=== PATIENT | male | born 1975 | race Caucasian/White ===

== ENCOUNTER → 2016-10-24 | Outpatient (CLI) | payer OTHER | LOC: C.LAB 01:25 | DX: Z02.83 Encounter for blood-alcohol and blood-drug test (principal) ==

== ENCOUNTER 2021-11-03 01:36 | Observation (INO) ==
[2021-11-03] MEDS ORDERED: MoRPHine SULFATE 4 MG/ML 1 ML CARP\\VIAL IV STA ×2 (01:46→03:13)
[2021-11-03] MEDS ORDERED: SODIUM CHLORIDE 0.9% 1000ML 1,000 ML IV STA (01:46)
[2021-11-03] MEDS ORDERED: ONDANSETRON INJ 2 MG/ML 2 ML VIAL IV STA ×2 (01:46→03:59)
--- NOTE | 2021-11-03 01:50 | Emergency Department Note ---
History of Present Illness General Chief complaint: Flank Pain Stated complaint: SHARP PULSATING PAIN IN RIGHT SIDE Time Seen by Provider: 11/03/21 01:41 History of Present Illness This 46-year-old presents to the ER complaining of right upper quadrant flank pain today Location: Right upper quadrant Quality: Painful Severity: Moderate Duration: Today Timing: Today Context: Patient was concerned and came in Modifying factors: better with rest; worse with palpation Patient denies chest pain, dyspnea, vomiting, diarrhea, urinary symptoms. No prior abdominal surgeries. Home Medications Medication Instructions Recorded Confirmed Type NONE #0 11/18/10 History Allergies Allergy/AdvReac Type Severity Reaction Status Date / Time Penicillins Allergy Mild Unknown Verified 11/03/21 04:00 Past Med/Surg History Medical History No acute medical problems Surgical History No pertinent past surgical history Social History Smoking Status: Never smoker Feels Safe at Home: Yes Review of Systems A total of 10 systems reviewed and were otherwise negative Physical Exam Vital Signs Vital Signs - 24 hr 11/03/21 01:38 11/03/21 03:20 11/03/21 03:33 Temperature 36.2 C L Temperature Source Temporal Artery Scan Pulse Rate 55 L 56 L Pulse Rate [Finger] 54 L Respiratory Rate 18 18 18 Respiratory Effort / Characteristics Non-Labored Non-Labored Spontaneous Respiratory Depth Normal Normal Blood Pressure 138/85 Blood Pressure [Right Arm] 154/97 H Blood Pressure Mean 102 Blood Pressure Mean [Right Arm] 116 Blood Pressure Position Sitting Blood Pressure Position [Right Arm] Sitting Pulse Oximetry 97 100 99 Oxygen Delivery Method Room Air Room Air Room Air Sepsis Recent Fever Within 48 Hours No Sepsis New/Unexplained Change in Mental Status N/A Sepsis Action Taken by Nursing No Action Required 11/03/21 05:16 Temperature Temperature Source Pulse Rate Pulse Rate [Finger] 56 L Respiratory Rate 17 Respiratory Effort / Characteristics Non-Labored Spontaneous Respiratory Depth Normal Blood Pressure Blood Pressure [Right Arm] 143/81 H Blood Pressure Mean Blood Pressure Mean [Right Arm] 101 Blood Pressure Position Blood Pressure Position [Right Arm] Lying Pulse Oximetry 96 Oxygen Delivery Method Room Air Sepsis Recent Fever Within 48 Hours Sepsis New/Unexplained Change in Mental Status Sepsis Action Taken by Nursing VITALS: Vitals are noted on the nurse's note and reviewed by myself. Vital signs stable. GENERAL: Pleasant gentleman, in no acute distress, nondiaphoretic, well- developed well-nourished. SKIN: The skin was without rashes, erythema, edema, or bruising. There is no tenting of the skin. Capillary reflex less than 2 seconds. HEAD: Normocephalic atraumatic. EARS: External auditory canals clear, EYES: Pupils equal round and reactive to light and accommodation. Conjunctivae without injection, sclerae without icterus. Extraocular movements intact. NOSE: Patent, turbinates without inflammation or discharge MOUTH: Mucous membranes moist. Pharynx without erythema or exudate. Uvula midline. Airway patent. Tongue does not deviate. NECK: Supple without nuchal rigidity. No lymphadenopathy. No thyromegaly. Cervical spine is nontender. No JVD. HEART: Regular rate and rhythm LUNGS: Clear to auscultation bilaterally without wheezes, rales or rhonchi. No retractions or accessory muscle use. ABDOMEN: Positive bowel sounds x 4. Normal tympanic percussion. Soft, tender to palpation right upper quadrant, without masses or organomegaly. No guarding or rebound tenderness. No CVA tenderness MUSCULOSKELETAL: No muscle atrophy, erythema, or edema noted. NEURO: Patient was alert and oriented to person place and time. Normal sensation to light and sharp touch. No focal neurological deficits. Course Administered Medications Lactated Ringer's (Lr) 1,000 mls @ 125 mls/hr IV .Q8H [facility] Stop: 12/03/21 03:59 Last Admin: 11/03/21 05:13 Dose: 125 mls/hr Documented by: [id number] Discontinued Medications Sodium Chloride (Nss 1000ml) 1,000 mls @ 999 mls/hr IV .Q1H1M STA Stop: 11/03/21 02:46 Last Infusion: 11/03/21 05:11 Dose: 0 mls/hr Documented by: [id number] Admin: 11/03/21 02:30 Dose: 999 mls/hr Documented by: [id number] Cefoxitin Sodium (Mefoxin) 2,000 mg in 60 mls @ 100 mls/hr IV NOW STA Stop: 11/03/21 04:13 Last Infusion: 11/03/21 04:48 Dose: 0 mls/hr Documented by: [id number] Admin: 11/03/21 04:11 Dose: 100 mls/hr Documented by: [id number] Morphine Sulfate (Morphine Sulfate 4 Mg/Ml 1 Ml Carp\Vial) 4 mg IV NOW STA Stop: 11/03/21 01:47 Last Admin: 11/03/21 02:28 Dose: 4 mg Documented by: [id number] Morphine Sulfate (Morphine Sulfate 4 Mg/Ml 1 Ml Carp\Vial) 4 mg IV NOW STA Stop: 11/03/21 03:14 Last Admin: 11/03/21 03:19 Dose: 4 mg Documented by: [id number] Ondansetron HCl (Ondansetron Inj 2 Mg/Ml 2 Ml Vial) 4 mg IV NOW STA Stop: 11/03/21 01:47 Last Admin: 11/03/21 02:28 Dose: 4 mg Documented by: [id number] Ondansetron HCl (Ondansetron Inj 2 Mg/Ml 2 Ml Vial) 4 mg IV NOW STA Stop: 11/03/21 04:00 Last Admin: 11/03/21 04:04 Dose: 4 mg Documented by: [id number] Medical Decision Making Medical Records Attestation: I reviewed the patient's medical records. Home Medications Current Medication List: was personally reviewed by me Laboratory Data Attestation: I reviewed the patient's lab results. Result diagrams: 11/03/21 02:20 11/03/21 02:20 Lab Results 11/03/21 11/03/21 11/03/21 Range/Units 02:20 02:20 02:20 WBC 7.47 (4.8-10.8) K/uL RBC 4.83 (4.7-6.1) M/uL Hgb 14.3 (14.0-18.0) g/dL Hct 42.3 (42-52) % MCV 87.6 (80-100) fL MCH 29.6 (25-34) pg MCHC 33.8 (32-36) g/dL RDW Std Deviation 43.3 (36.4-46.3) fL RDW Coeff of Christophe 13.3 (11.5-14.5) % Plt Count 212 (130-400) K/uL MPV 9.8 (7.4-10.4) fL Immature Gran % (Auto) 0.1 % Neut % (Auto) 55.5 % Lymph % (Auto) 30.5 % Cocke % (Auto) 9.9 % Eos % (Auto) 3.7 % Baso % (Auto) 0.3 % Neut # (Auto) 4.14 (1.4-6.5) K/uL Lymph # (Auto) 2.28 (1.2-3.4) K/uL Cocke # (Auto) 0.74 H (0.11-0.59) K/uL Eos # (Auto) 0.28 (0-0.5) K/uL Baso # (Auto) 0.02 (0-0.2) K/uL Immature Gran # (Auto) 0.01 (0.00-0.02) K/uL Sodium 139 (136-145) mmol/L Potassium 3.6 (3.5-5.1) mmol/L Chloride 104 (98-107) mmol/L Carbon Dioxide 29 (21-32) mmol/L Anion Gap 6 (3-11) BUN 15 (6-23) mg/dl Creatinine 1.12 (0.6-1.4) mg/dl Est Cr Clr Drug Dosing 112.1 ml/min Est GFR ( Amer) 89.5 ml/min Est GFR (Non-Af Amer) 77.3 ml/min BUN/Creatinine Ratio 13.4 (10-20) Glucose 93 (70-99(Fasting)) mg/dl Calcium 8.9 (8.5-10.1) mg/dl Total Bilirubin 0.5 (0.2-1.0) mg/dl AST 17 (13-39) U/L ALT 24 (7-52) U/L Alkaline Phosphatase 70 (34-104) U/L Total Protein 6.7 (6.0-8.3) gm/dl Albumin 4.3 (3.4-5.0) gm/dl Globulin 2.4 L (2.5-4.0) gm/dl Albumin/Globulin Ratio 1.8 (0.9-2) Lipase 29 (11-82) U/L Urine Color Yellow Urine Appearance Clear (Clear) Urine pH 5.0 (4.5-7.5) Ur Specific [place] 1.018 (1.000-1.030) Urine Protein Negative (Negative) Urine Glucose (UA) Negative (Negative) Urine Ketones Trace H (Negative) Urine Blood Negative (Negative) Urine Nitrite Negative (Negative) Urine Bilirubin Negative (Negative) Urine Urobilinogen Negative (Negative) Ur Leukocyte Esterase Negative (Negative) SARS-CoV-2, RNA, NAAT (NEGATIVE) 11/03/21 Range/Units 03:28 WBC (4.8-10.8) K/uL RBC (4.7-6.1) M/uL Hgb (14.0-18.0) g/dL Hct (42-52) % MCV (80-100) fL MCH (25-34) pg MCHC (32-36) g/dL RDW Std Deviation (36.4-46.3) fL RDW Coeff of Christophe (11.5-14.5) % Plt Count (130-400) K/uL MPV (7.4-10.4) fL Immature Gran % (Auto) % Neut % (Auto) % Lymph % (Auto) % [place] % (Auto) % Eos % (Auto) % Baso % (Auto) % Neut # (Auto) (1.4-6.5) K/uL Lymph # (Auto) (1.2-3.4) K/uL [place] # (Auto) (0.11-0.59) K/uL Eos # (Auto) (0-0.5) K/uL Baso # (Auto) (0-0.2) K/uL Immature Gran # (Auto) (0.00-0.02) K/uL Sodium (136-145) mmol/L Potassium (3.5-5.1) mmol/L Chloride (98-107) mmol/L Carbon Dioxide (21-32) mmol/L Anion Gap (3-11) BUN (6-23) mg/dl Creatinine (0.6-1.4) mg/dl Est Cr Clr Drug Dosing ml/min Est GFR ( Amer) ml/min Est GFR (Non-Af Amer) ml/min BUN/Creatinine Ratio (10-20) Glucose (70-99(Fasting)) mg/dl Calcium (8.5-10.1) mg/dl Total Bilirubin (0.2-1.0) mg/dl AST (13-39) U/L ALT (7-52) U/L Alkaline Phosphatase (34-104) U/L Total Protein (6.0-8.3) gm/dl Albumin (3.4-5.0) gm/dl Globulin (2.5-4.0) gm/dl Albumin/Globulin Ratio (0.9-2) Lipase (11-82) U/L Urine Color Urine Appearance (Clear) Urine pH (4.5-7.5) Ur Specific [place] (1.000-1.030) Urine Protein (Negative) Urine Glucose (UA) (Negative) Urine Ketones (Negative) Urine Blood (Negative) Urine Nitrite (Negative) Urine Bilirubin (Negative) Urine Urobilinogen (Negative) Ur Leukocyte Esterase (Negative) SARS-CoV-2, RNA, NAAT NEGATIVE (NEGATIVE) Imaging Data Attestation: I personally reviewed and interpreted this imaging study as follows: MDM Narrative Prior records/ancillary studies reviewed. Triage Nursing notes reviewed. Additional history obtained from nursing. The patient's history was concerning for abdominal pain. Differential diagnosis: Etiologies such as appendicitis, diverticulitis, PUD, biliary pathology, UTI, pancreatitis, obstruction, mesenteric ischemia, aortic pathology, infections, inflammatory bowel disease, renal colic, as well as others were entertained. Physical examination findings: As above. ER treatment provided: An order was placed for continuous cardiac monitoring. The monitor shows a rate of 50-90 with a sinus rhythm. Zofran morphine IV fluids, Mefoxin On reassessment the patient felt better. Diagnostics interpreted by me: The labs revealed no worrisome leukocytosis. Negative urine Imaging studies: Stat rad was extremely delayed in reading. I did consult surgery prior to the official read. Ultrasound still has not read at time of admission. Surgery evaluated the patient and will take to the patient to the OR. Preliminary Findings Only See Final Report For Complete Findings US RUQ: Impression: Fatty liver 5 mm cyst seen in the left lobe of the liver. There are multiple gallstones. The gallbladder is mildly distended. Positive ultrasound Smith sign. These findings could be from acute cholecystitis and can be further assessed and cholescintigraphy. There is evidence of adenomyomatosis. CBD caliber measures 8.8 mm in diameter. Radiologist: Fred Otto MD the final report read was 3 hours later after it was uploaded to stat read for a read. Consultation: A consultation was placed with the surgical midlevel muriel. The case was discussed and diagnostics were reviewed. The patient was admitted to the surgical service for further evaluation and treatment. Exam and history seem consistent with biliary colic with concern for possible acute cholecystitis. Surgery was consulted. They will evaluate for admission. By the evaluation outlined above emergent etiologies such as appendicitis, diverticulitis, PUD, UTI, pancreatitis, obstruction, mesenteric ischemia, aortic pathology, inflammatory bowel disease, renal colic, as well as others were deemed relatively unlikely. The pt informed about the findings as listed above. All questions were answered and pleased with the treatment. The chart was completed utilizing [email or web address] Speech voice recognition software. Grammatical errors, random word insertions, pronoun errors, and incomplete sentences are an occassional consequence of this system due to software limitations, ambient noise, and hardware issues. Any formal questions or concerns about the content, text, or information contained within the body of this dictation should be directly addressed to the physician certified surgical assistant for clarification. Impression & Plan Biliary colic, Abdominal pain, acute Discharge Plan Visit Data Chief Complaint: Flank Pain Stated Complaint: SHARP PULSATING PAIN IN RIGHT SIDE ED Provider: Darline Espinoza ED Midlevel Provider: Darya Spaulding Discharge Problem: Biliary colic, Abdominal pain, acute Patient Disposition: Being Evaluated by Surgeon Condition: Good Forms Stand Alone Forms: [employer] Prescriptions Prescriptions: No Action NONE . Qty: 0 RF: 0 Referrals Referrals: [facility],[place] [Non-Staff] -
[2021-11-03 02:35] LABS: Basophils # (auto) 0.02 K/uL (0-0.2); Basophils % (auto) 0.3 %; Eosinophils # (auto) 0.28 K/uL (0-0.5); Eosinophils % (auto) 3.7 %; Hematocrit (blood only) 42.3 % (42-52); Hemoglobin 14.3 g/dL (14.0-18.0); Immature Granulocytes # (auto) 0.01 K/uL (0.00-0.02); Immature Granulocytes % (auto) 0.1 %; Lymphocytes # (auto) 2.28 K/uL (1.2-3.4); Lymphocytes % (auto) 30.5 %; Mean Corpuscular Hemoglobin 29.6 pg (25-34); Mean Corpuscular Hgb Conc 33.8 g/dL (32-36); Mean Corpuscular Volume 87.6 fL (80-100); Mean Platelet Volume 9.8 fL (7.4-10.4); Monocytes # (auto) 0.74 K/uL (0.11-0.59); Monocytes % (auto) 9.9 %; Neutrophils # (auto) 4.14 K/uL (1.4-6.5); Neutrophils % (auto) 55.5 %; Platelet Count 212 K/uL (130-400); RDW Coefficient of Variation 13.3 % (11.5-14.5); RDW Standard Deviation 43.3 fL (36.4-46.3); Red Blood Count 4.83 M/uL (4.7-6.1); White Blood Count 7.47 K/uL (4.8-10.8)
[2021-11-03 03:00] LABS: Albumin Globulin Ratio 1.8 (0.9-2); Albumin Level 4.3 gm/dl (3.4-5.0); BUN Creatinine Ratio 13.4 (10-20); Bilirubin,Total 0.5 mg/dl (0.2-1.0); Calcium 8.9 mg/dl (8.5-10.1); Creatinine Clr Calc Pharmacy 112.1 ml/min; Est GFR (African American) 89.5 ml/min; Est GFR (Non-African American) 77.3 ml/min; Globulin 2.4 gm/dl (2.5-4.0); Potassium 3.6 mmol/L (3.5-5.1); Total Protein 6.7 gm/dl (6.0-8.3)
[2021-11-03 03:32] LABS: Appearance Urine Clear (Clear); Bilirubin Urine Negative (Negative); Blood Urine Negative (Negative); Color Urine Yellow; Glucose Urine UA Negative (Negative); Ketones Urine Trace (Negative); Leukocyte Esterase Urine Negative (Negative); Nitrite Urine Negative (Negative); Protein Urine Negative (Negative); Specific Gravity Urine 1.018 (1.000-1.030); Urobilinogen Urine Negative (Negative)
[2021-11-03] MEDS ORDERED: cefOXitin 2,000 MG/60 ML BAG IV STA (03:38)
[2021-11-03] MEDS ORDERED: ACETAMINOPHEN 1,000 MG/100 ML VIAL IV PRN (03:55)
[2021-11-03] MEDS ORDERED: ONDANSETRON INJ 2 MG/ML 2 ML VIAL IV PRN ×2 (03:55→14:37)
[2021-11-03] MEDS ORDERED: MoRPHine SULFATE 4 MG/ML 1 ML CARP\\VIAL IV PRN ×2 (03:55→17:32)
--- NOTE | 2021-11-03 03:55 | History & Physical Report ---
Date of Service November 03, 2021 Assessment & Plan (1) Biliary colic: Plan: Due to the patient's clinical presentation and gallbladder ultrasound findings he will be admitted to hospital we will proceed as follows: Analgesics will be provided Antiemetics will be provided Hydrate him with IV fluids We will initiate antibiotics.-The emergency department has already initiated cefoxitin We will implement n.p.o. status We are tentatively planning on performing a cholecystectomy on 11/03/[address] Angel. I discussed the procedure with the patient as well as expected postoperative course. Additional recommendations be forthcoming based on operative findings and his postoperative course Will use SCDs only for DVT prevention. We will avoid chemical means at this time due to planned surgery He will be a level 1 full code History of Present Illness Chief Complaint: Cholelithiasis Primary Care Provider: Rex Espinoza DO This is a 46-year-old male who presented to [facility] emergency department secondary to abdominal pain. Patient notes that the pain began the morning of 11/02/21 and has persisted throughout the day, getting somewhat worse. He notes that the pain is located primarily in the right upper quadrant with some pain in in the epigastric region to a lesser degree. He notes that the pain radiates somewhat to his back. He does not identify any modifying factors. I specifically asked him if he noted any postprandial pain in the past which he denies. With this pain he denies any fevers, shakes, or chills. He does report some nausea without vomiting. Denies any prior abdominal surgeries. Most recent oral intake was at approximately 12:00 PM on 11/02/2021. In the emergency department the patient had labs and imaging which I independently reviewed. CBC revealed white blood cell count, hemoglobin, hematocrit, and platelet count were all normal. Chemistry profile showed sodium, potassium, BUN, and creatinine were normal. Patient did not have any elevation of his bilirubin, transaminases, or alkaline phosphatase. His lipase was not elevated. Urinalysis was not indicative of infection. A COVID test has been sent and is (-). EKG was performed that showed sinus bradycardia without changes indicative of acute ischemia. X-ray of the chest shows no evidence of pneumonia. There is no free air. A gallbladder US showed gallstone with borderline thickening of the GB wall and no pericholecystic fluid. There was some dilitation of the CBD noted. Denies a smoking history. He does report that he does drink alcohol but only on the weekends with his most recent alcoholic beverage being 2 days ago. He does report that he can drink up to 12 beers on the weekends. He denies prior surgeries and denies any medical problems. He does not not FH of biliary disease. At the time of my interview the patient was resting in bed. He did continue to complain of some right upper quadrant abdominal pain but was in no distress. Allergies Allergy/AdvReac Type Severity Reaction Status Date / Time Penicillins Allergy Mild Unknown Verified 11/03/21 04:00 Home Medications Medication Instructions Recorded Confirmed Type NONE #0 11/18/10 History Past Med/Surg History Medical History No acute medical problems Surgical History No pertinent past surgical history Social History Smoking Status: Never smoker Feels Safe at Home: Yes Review of Systems Constitutional: no fever and no chills Eyes: no eye pain Ear, Nose, Mouth, Throat: no ear pain Respiratory: no cough and no dyspnea Cardiovascular: no chest pain Gastrointestinal: + abdominal pain and + nausea; no vomiting and no diarrhea/loose stools Genitourinary: no dysuria Musculoskeletal: no back pain Integumentary: no rash Neurologic: no localized weakness Physical Exam Constitutional: well developed and well nourished; no acute distress Eyes: + anicteric sclerae ENMT: Ears: no hearing impairment Mouth: no oropharynx abnormality Sublingual jaundice noted Neck: trachea midline Respiratory: normal respiratory effort, lungs clear to auscultation Cardiovascular: Rate/Rhythm: regular rate and regular rhythm Gastrointestinal (Abdomen): Abdomen is soft, nondistended, and nonrigid. Bowel sounds are present. Pain with palpation in the left upper quadrant, left lower quadrant, or right lower quadrant. Pain was exhibited in the right upper quadrant with palpation. Smith sign is noted to be positive. I did not appreciate any hernias. Musculoskeletal: Dorsalis pedal pulses are palpable. Tenderness. No lower extremity edema. Skin: no rashes and no jaundice Neurologic: moves all extremities Psychiatric: A+Ox3, euthymic affect Results & Data Results & Data ([facility]) Vital Signs (Past 12 Hours) Vital Signs Temp Pulse Pulse Resp BP BP Pulse Ox 11/03/21 03:33 54 L 18 154/97 H 99 11/03/21 03:20 56 L 18 100 11/03/21 01:38 36.2 C L 55 L 18 138/85 97 PG Care Time/CCT Total # of Minutes Spent Total Time Spent with Patient: Total time spent is greater than 50% in coordination of care (as documented) at patient's floor/unit and/or counseling patient: Coding Level of Care Code INT OBSERVATION CARE 70M LVL 3 Diagnoses Biliary colic K80.50
[2021-11-03] MEDS: LACTATED RINGER'S 1,000 ML IV SCH ×3 (05:13→18:49)
--- NOTE | 2021-11-03 07:01 | XRay Report ---
XR chest 1V portable CLINICAL HISTORY: Preoperative evaluation. COMPARISON STUDY: No previous studies for comparison. FINDINGS: Lung volumes are normal. Lungs are clear. There is no pneumothorax or pleural effusion. Car diac size is normal. Mediastinal contours are normal. There is no evidence for pulmonary edema. IMPRESSION: No acute cardiopulmonary findings. ACT 112: Negative or not required by law. Electronically signed by: Roland Carmona M.D. 11/03/2021 6:59 AM
--- NOTE | 2021-11-03 07:07 | Ultrasound Report ---
US gallbladder CLINICAL HISTORY: Right upper quadrant abdominal pain. COMPARISON STUDY: No previous studies for comparison. FINDINGS: This exam is compromised by suboptimal penetration. Suspected subcentimeter hepatic cyst is noted. Common bile duct is mildly dilated, measuring 9 mm in caliber. No common bile duct calculi ar e identified however the mid to distal common bile duct is obscured. Gallbladder is distended with mi ld gallbladder wall thickening. There are gallstones within the gallbladder. Positive sonographic Mur phy sign was elicited. There is no right hydronephrosis. Pancreas is largely obscured by overlying janis wel gas. IMPRESSION: 1. Sonographic findings suggestive of acute cholecystitis. 2. Mild biliary ductal dilatation. No common bile duct calculi identified although mid to distal comm on bile duct obscured. Findings could be correlated with obstructive liver function tests. 3. Obscured pancreas. ACT 112: Negative or not required by law. Electronically signed by: Roland Carmona M.D. 11/03/2021 7:06 AM
--- NOTE | 2021-11-03 10:05 | History & Physical Bridge Note ---
Date of Service November 03, 2021 History & Physical Bridge Note I have examined the patient, reviewed the History & Physical and in the interval since the performance of the History & Physical I have noted the following changes of clinical significance: no changes noted Patient seen. Continues to have some right upper quadrant pain. We discussed his options. Discussed the risks of the procedure which include bleeding, infection, injury to a bile duct or bile leaks, injury to other organ, DVT, PE, [place], CVA etc. Following our discussion answered all of his questions. He agrees with the plan. We will proceed this morning with laparoscopic cholecystectomy.
[2021-11-03] MEDS: cefOXitin 2,000 MG in DEXTROSE 5% 50 ML IV SCH ×2 (10:09→14:55)
--- NOTE | 2021-11-03 14:02 | Anesthesiology Consultation ---
Date of Service November 03, 2021 Assessment & Plan (1) Encounter for pre-operative examination: Chart Review Chart Review: Acceptable Risk for Surgery History Surgery Operation Date: 11/03/21 08:25 Proposed Procedures p Laparoscopic Cholecystectomy - Nelson Angel, Height/Weight Height: 6 ft 3 in Weight: 119.7 kg Allergies Allergy/AdvReac Type Severity Reaction Status Date / Time Penicillins Allergy Mild Unknown Verified 11/03/21 04:00 Medications Home Medications Medication Instructions Recorded Confirmed Last Taken NONE #0 11/18/10 Unknown oxycodone-acetaminophen 5 mg-325 1 - 2 tab PO Q4H PRN #15 tab 11/03/21 Unknown mg tablet (Percocet) Active Medications Generic Name Dose Route Start Last Admin Trade Name Freq PRN Reason Stop Dose Admin Lactated Ringer's 1,000 mls @ 125 mls/hr 11/03/21 04:00 11/03/21 13:54 Lr IV 12/03/21 03:59 Infused .Q8H G[facility]IO Infusion Cefoxitin Sodium 2,000 mg/ 60 mls @ 100 mls/hr 11/03/21 10:00 11/03/21 11:08 Dextrose IV 11/13/21 09:59 Infused Q6H [facility] Infusion NPO Date Last Intake of Fluids: 11/02/21 Time Last Intake of Fluids: 08:00 Date Last Intake of Solids: 11/02/21 Time Last Intake of Solids: 08:00 Past Medical History Medical History No acute medical problems Past Surgical History Surgical History No pertinent past surgical history Social History Smoking Status: Never smoker Hx Alcohol Use: Yes Alcohol type: beer Alcohol Intake Frequency Comment: ONLY ON WEEKENDS DRINKS A 12 PACK Hx Substance Use: Yes substance use type: former substance user Physical Exam Vital Signs Last Vital Signs Temp 36.6 C 11/03/21 06:45 Pulse 54 L 11/03/21 06:45 Resp 16 11/03/21 06:45 BP 120/76 11/03/21 06:45 Pulse Ox 98 11/03/21 06:45 Testing Laboratory Results 11/03/21 02:20 11/03/21 02:20 Urine Color Yellow 11/03/21 02:20 Urine Appearance Clear (Clear) 11/03/21 02:20 Urine pH 5.0 (4.5-7.5) 11/03/21 02:20 Ur Specific [place] 1.018 (1.000-1.030) 11/03/21 02:20 Urine Protein Negative (Negative) 11/03/21 02:20 Urine Glucose (UA) Negative (Negative) 11/03/21 02:20 Urine Ketones Trace (Negative) H 11/03/21 02:20 Urine Nitrite Negative (Negative) 11/03/21 02:20 Ur Leukocyte Esterase Negative (Negative) 11/03/21 02:20 Electrocardiogram Date: 11/03/21 Findings: + SB @ (48)
--- NOTE | 2021-11-03 14:12 | Electrocardiogram Report ---
Test Reason : Blood Pressure : / mmHG Vent. Rate : 048 BPM Atrial Rate : 048 BPM P-R Int : 194 ms QRS Dur : 112 ms QT Int : 456 ms P-R-T Axes : 012 -21 022 degrees QTc Int : 407 ms Sinus bradycardia Otherwise normal ECG No previous ECGs available Confirmed by Wilberto Grant ([id number]) on 11/03/2021 2:11:40 PM Referred By: REFERRED SELF Confirmed By:Wilberto Grant
[2021-11-03] MEDS ORDERED: BUPIVACAINE 0.5 % 5 MG/1 ML MPF 30ML VIAL ONE (14:21)
[2021-11-03] MEDS ORDERED: EPINEPHrine INJ 1 MG/ML AMP ONE (14:21)
[2021-11-03] MEDS ORDERED: MIDAZOLAM HCL 1 MG/ML 2ML VIAL ONE (14:24)
[2021-11-03] MEDS ORDERED: fentaNYL citrate 100 MCG/2 ML VIAL ONE (14:24)
[2021-11-03] MEDS ORDERED: LIDOCAINE 2% 2 ML VIAL/AMP(20MG/ML) INFIL ONE (14:27)
[2021-11-03] MEDS ORDERED: DEXAMETHASONE SOD INJ 4 MG/ML VIAL ONE (14:27)
[2021-11-03] MEDS ORDERED: ROCURONIUM BROMIDE 10 MG/ML 5 ML VIAL IV ONE (14:27)
[2021-11-03] MEDS ORDERED: PROPOFOL IV EMULSION 10 MG/ML 20 ML VIAL IV ONE (14:27)
[2021-11-03] MEDS ORDERED: ONDANSETRON INJ 2 MG/ML 2 ML VIAL ONE (14:27)
[2021-11-03] MEDS ORDERED: PROMETHAZINE HCL 12.5 MG in SODIUM CHLORIDE 0.9% 50 ML IV PRN (14:37)
[2021-11-03] MEDS ORDERED: ATROPINE SULFATE 0.1 MG/ML 10ML SYR IV PRN (14:37)
[2021-11-03] MEDS ORDERED: KETOROLAC 30 MG/ML VIAL IV PRN (14:37)
[2021-11-03] MEDS ORDERED: GLYCOPYRROLATE 0.2 MG/ML VIAL ONE ×3 (15:02→15:23)
[2021-11-03] MEDS ORDERED: ePHEDrine sulfate 50 MG/ML AMP ONE (15:02)
[2021-11-03] MEDS ORDERED: NEOSTIGMINE METHYLSULFATE 1 MG/ML 10ML VIAL ONE (15:23)
--- NOTE | 2021-11-03 15:42 | Operative Report ---
PG Post Operative Report Pre & Post Diagnosis Operation Date: 11/03/21 08:25 Pre-Op Diagnosis: acute cholecystitis Post-Op Diagnosis: acute cholecystitis I identified the patient and participated in the time-out.: Yes Procedure Operation Date: 11/03/21 08:25 Actual Procedures p Laparoscopic Cholecystectomy(Not Applicable) - Nelson Angel DO Surgeon Nelson Anegl DO Branch Billing Payroll Clerk chucky Matthew Estimated Blood Loss 10 Findings Consistent with Post-Op Diagnosis Specimens gallbladder Description of Procedure After informed consent was obtained the patient was taken to the operating room and placed in the supine position. After successful intubation the abdomen was sterilely prepped and draped in usual fashion. A periumbilical incision was made with an 11 blade scalpel and carried down through the soft tissue using electrocautery. The anterior rectus fascia was opened using electrocautery and 2 #0 Vicryl stay sutures were placed. The peritoneum was elevated with hemostats and incised under direct vision using Metzenbaum scissors. A finger sweep was performed and a 12 mm Pat trocar was placed. The abdomen was insufflated to 18 mmHg. The laparoscope was inserted and the abdomen was examined in 360. The gallbladder was acutely inflamed but otherwise there was no other gross abnormalities identified. A subxiphoid 5 mm port and 2 right upper quadrant 5 mm ports were placed under direct vision. The patient was placed in a reverse Trendelenburg position and slightly airplaned to the left. The gallbladder was grasped and elevated superiorly and laterally. A [place] dissector was used to take down adhesions around the neck of the gallbladder. There was a small anterior artery. This was skeletonized clipped twice proximally once distally and transected. Next, the cystic duct was identified and skeletonized. It was clipped twice proximally and once distally and transected using a laparoscopic scissor. In similar fashion the cystic artery was identified and skeletonized clipped and divided. The gallbladder was removed from the gallbladder fossa with electrocautery. It was placed into an Endo Catch bag. Thorough irrigation was performed. At the end of the procedure there was adequate hemostasis and no evidence of any bile leaks. A final look around the abdomen showed no other abnormalities. The gallbladder and trochars were all removed and the abdomen was desufflated. The fascia of the camera port was closed using 0 Vicryl in a [id number] fashion. All the wounds were irrigated and closed using 4-0 Monocryl. Marcaine was injected around them for postoperative analgesia and skin glue used as a dressing. The patient was awaken extubated and transferred to recovery in stable condition. My physician's bricklayer's assistant was present throughout the entire case... helped with prepping the patient. With exposure for trocar placement, as well as retracted the gallbladder throughout the case and also assisted with wound closure and dressing placement. I attest to the content of the Intraoperative Record and any orders documented therein. Any exceptions are noted below.
[2021-11-03] MEDS: fentaNYL citrate 100 MCG/2 ML VIAL IV PRN ×3 (16:13→16:30)
--- NOTE | 2021-11-03 16:45 | Anesthesiology Progress Note ---
Date of Service November 03, 2021 Anesthesia Post Procedure Vital Signs Vital Signs: Temp Pulse Pulse Pulse Resp BP BP 11/03/21 16:40 49 L 18 134/80 11/03/21 16:30 49 L 18 137/76 11/03/21 16:20 53 L 16 138/76 11/03/21 16:10 51 L 16 137/79 11/03/21 16:05 69 18 136/81 11/03/21 16:00 36.0 C L 81 20 127/79 11/03/21 14:04 36.6 C 43 L 18 11/03/21 06:45 36.6 C 54 L 16 11/03/21 05:16 56 L 17 11/03/21 03:33 54 L 18 11/03/21 03:20 56 L 18 11/03/21 01:38 36.2 C L 55 L 18 138/85 BP Pulse Ox 11/03/21 16:40 94 11/03/21 16:30 94 11/03/21 16:20 95 11/03/21 16:10 99 11/03/21 16:05 96 11/03/21 16:00 100 11/03/21 14:04 112/77 98 11/03/21 06:45 120/76 98 11/03/21 05:16 143/81 H 96 11/03/21 03:33 154/97 H 99 11/03/21 03:20 100 11/03/21 01:38 97 Pain Intensity Right Abdomen: Pain Intensity: 3 Transfer of Care Handoff Completed per policy Notes Mental Status: alert / awake / arousable Patient Amnestic to Procedure: Yes Nausea / Vomiting: adequately controlled Pain: adequately controlled Airway Patency, RR, SpO2: stable & adequate BP & HR: stable & adequate Hydration State: stable & adequate Anesthetic Complications: no major complications apparent
[2021-11-03] MEDS ORDERED: oxyCODONE/ACETAMINOPHEN 5mg/325mg TAB PO PRN ×2 (17:32)
[2021-11-04] MEDS: LACTATED RINGER'S 1,000 ML IV SCH (03:00)
--- NOTE | 2021-11-04 08:12 | Surgery Progress Note ---
Date of Service November 04, 2021 Assessment & Plan (1) Biliary colic: Plan: POD 1 lap martin d/c home if tolerates breakfast Admission and Anticipated Discharge Date Admission Date: November 03, 2021 Subjective feeling better this AM, small dinner Physical Exam Gastrointestinal (Abdomen): Inspection/Auscultation: + abdominal surgical incision (dry); abdomen not distended Results & Data ([facility]) Vital Signs (Past 12 Hours) Vital Signs Temp Pulse Pulse Resp BP Pulse Ox 11/04/21 08:00 36.9 C 79 16 117/68 96 11/04/21 02:50 36.7 C 70 16 113/68 95 11/03/21 22:15 36.7 C 62 16 120/68 97 PG Care Time/CCT Total # of Minutes Spent Total Time Spent with Patient: Total time spent is greater than 50% in coordination of care (as documented) at patient's floor/unit and/or counseling patient: Coding Level of Care Code None Diagnoses Biliary colic K80.50
--- NOTE | 2021-11-04 08:15 | Discharge Summary ---
Date of Service November 04, 2021 Admission HPI Per Admitting Provider This is a 46-year-old male who presented to [facility] emergency department secondary to abdominal pain. Patient notes that the pain began the morning of 11/02/21 and has persisted throughout the day, getting somewhat worse. He notes that the pain is located primarily in the right upper quadrant with some pain in in the epigastric region to a lesser degree. He notes that the pain radiates somewhat to his back. He does not identify any modifying factors. I specifically asked him if he noted any postprandial pain in the past which he denies. With this pain he denies any fevers, shakes, or chills. He does report some nausea without vomiting. Denies any prior abdominal surgeries. Most recent oral intake was at approximately 12:00 PM on 11/02/2021. In the emergency department the patient had labs and imaging which I independently reviewed. CBC revealed white blood cell count, hemoglobin, hematocrit, and platelet count were all normal. Chemistry profile showed sodium, potassium, BUN, and creatinine were normal. Patient did not have any elevation of his bilirubin, transaminases, or alkaline phosphatase. His lipase was not elevated. Urinalysis was not indicative of infection. A COVID test has been sent and is (-). EKG was performed that showed sinus bradycardia without changes indicative of acute ischemia. X-ray of the chest shows no evidence of pneumonia. There is no free air. A gallbladder US showed gallstone with borderline thickening of the GB wall and no pericholecystic fluid. There was some dilitation of the CBD noted. Denies a smoking history. He does report that he does drink alcohol but only on the weekends with his most recent alcoholic beverage being 2 days ago. He does report that he can drink up to 12 beers on the weekends. He denies prior surgeries and denies any medical problems. He does not not FH of biliary disease. At the time of my interview the patient was resting in bed. He did continue to complain of some right upper quadrant abdominal pain but was in no distress. Principal Diagnosis Acute cholecystitis Discharge Exam Constitutional WD/WN, vitals as above Gastrointestinal (Abdomen) Inspection/Auscultation: + abdominal surgical incision (clean, dry) Percussion/Palpation: abdomen soft Discharge Data Allergies Allergy/AdvReac Type Severity Reaction Status Date / Time Penicillins Allergy Mild Unknown Verified 11/03/21 04:00 Consultations 11/03/21 03:58 ED Decision to Admit Stat Procedures Performed Operation Date: 11/03/21 08:25 Actual Procedures p Laparoscopic Cholecystectomy(Not Applicable) - Nelson Angel DO Ordered Studies 11/03/21 01:46 gallbladder Urgent Hospital Course (1) Acute cholecystitis: 46 y/o male presented to the ER with RUQ abdominal pain. Although white count was normal, US showed cholelithiasis and acute cholecystitis. He was admi tted to the surgical floor overnight and taken to the operating room for laparoscopic cholecystectomy the next day. He continued to require IV analgesics the evening after surgery. The next morning he was able to tolerate oral analgesics and diet. He was stable for discharge home. Total Time Total Time Spent Total Time Spent (In Minutes): 15 Discharge Plan Discharge Items Patient Disposition: Home - Self-Care Reason For Visit: BILIARY CHOLIC Discharge Diagnosis: Laparoscopic cholecystectomy Condition on Discharge: Good Activity: As commented below Lifting: No more than 10 pounds Bathing Comment: OK to shower over skin glue Driving/Machine Use: when pain free Non-emergency contact: Surgeon Call non-emergency contact if: you have any medication questions, your pain is not controlled, you have a fever, your temperature is above 101.5 and your wound has increased redness Follow-up/Referrals: Nelson Angel DO [Surgeon] - (Please call to make an appt in approx 2 weeks) Rex Espinoza DO [Primary Care Provider] - Diet: Regular Addtl Attending Provider Instructions: Pending Studies at Discharge: No Stand-Alone Forms: [facility](ye)BRAIN, Work/School Release, Smoking Cessation Medications and DC Order Prescriptions: New oxycodone-acetaminophen [Percocet] 5-325 mg tablet 1 - 2 tab PO Q4H PRN (Reason: pain, initial therapy, max 6 daily) Qty: 15 RF: 0 Continued NONE . Qty: 0 RF: 0 Discharge Orders: Discharge Order (Routine); Ordered 11/03/21 Ordered By: Elías Alonzo/Other Patient Handouts: Cholecystectomy Admission Data Admit Date/Time: 11/03/21 03:59 Attending Provider: Nelson Angel Admit Provider: Nelson Angel Primary Care Provider: Rex Espinoza Other Providers: Nelson Angel Coding Level of Care Code D/C DAY MANAGEMENT <30 MINS Diagnoses Acute cholecystitis K81.0
== END 2021-11-04 10:11 | disposition home or self-care (01) ==
LOC: ED 01:36 → 3N 01:36